=== PATIENT | female | born 1975 | race Caucasian/White ===

== ENCOUNTER 2019-01-06 15:41 | Emergency (ER) | payer SELFPAY ==
[~2019-01-06] VITALS: Ht 170.2 cm; Wt 140.0 kg
[2019-01-06] MEDS ORDERED: IV NORMAL SALINE 1,000ML 1,000 ML IV ONE (16:00)
[2019-01-06 16:09] LABS: BASO # 0.4 x10^3/uL (0.0-0.2); BASO % 3 % (0-3); EOS # 0.1 x10^3/uL (0.0-0.7); EOS % 1 % (0-3); HEMATOCRIT 31.5 % (36.0-47.0); HEMOGLOBIN 10.7 g/dL (12.0-15.5); LYMPH # 1.9 x10^3/uL (1.0-4.8); LYMPH % 16 % (24-48); MEAN CORPUSCULAR HEMOGLOBIN 40 pg (25-35); MEAN CORPUSCULAR HGB CONC 34 g/dL (31-37); MEAN CORPUSCULAR VOLUME 118 fL (79-100); MONO # 0.9 x10^3/uL (0.0-1.1); MONO % 8 % (0-9); NEUT # 9.1 x10^3uL (1.8-7.7); NEUT % 73 % (31-73); PLATELET COUNT 206 x10^3/uL (140-400); RED BLOOD COUNT 2.67 x10^6/uL (3.50-5.40); WHITE BLOOD COUNT 12.5 x10^3/uL (4.0-11.0)
[2019-01-06] MEDS ORDERED: ONDANSETRON PF 4 MG/2 ML VIAL. IV ONE (16:15)
--- NOTE | 2019-01-06 16:24 | PHYS DOC ---
Past History Past Medical History: Alcoholism, Bipolar, Hypertension, Other Past Surgical History: Other Alcohol Use: Heavy Drug Use: Marijuana Adult General Chief Complaint Chief Complaint: ABDOMINAL PAIN HPI HPI 43-year-old female presents with right upper quadrant pain and scleral icterus. The patient noticed for the last few weeks that she has had yellowing of her eyes. The patient admits to being an alcoholic for more than 20 years. She has not had any alcohol to drink in the last 2 weeks. Prior to that, she was drinking anywhere from 2 beers a day up to half a gallon of vodka. She has never been diagnosed with liver disease. He tells me she has neuropathy in her feet, but no diabetes diagnosis. She has not had fever or chills. She has had intermittent abdominal pain that is mostly in the right upper quadrant. She's had decreased appetite, frequent nausea, and some episodes of vomiting. Review of Systems Review of Systems Constitutional: Denies fever or chills [] Eyes: Denies change in visual acuity, redness, or eye pain. Scleral icterus bilaterally[] HENT: Denies nasal congestion or sore throat [] Respiratory: Denies cough or shortness of breath [] Cardiovascular: No additional information not addressed in HPI [] GI: Denies abdominal pain, nausea, vomiting, bloody stools or diarrhea [] : Denies dysuria or hematuria [] Musculoskeletal: Denies back pain or joint pain [] Integument: Denies rash or skin lesions [] Neurologic: Denies headache, focal weakness or sensory changes [] Endocrine: Denies polyuria or polydipsia [] All other systems were reviewed and found to be within normal limits, except as documented in this note. Current Medications Current Medications Current Medications Medications (Trade) Dose Ordered Sig/Anna Start Time Stop Time Status Last Admin Dose Admin Ondansetron HCl (Zofran) 8 mg 1X ONCE 01/06/19 16:15 01/06/19 16:16 UNV Sodium Chloride 1,000 ml @ 1,000 mls/hr 1X ONCE 01/06/19 16:00 01/06/19 16:59 01/06/19 16:07 1,000 MLS/HR Allergies Allergies Allergies Coded Allergies Type Severity Reaction Last Updated Verified Sulfa (Sulfonamide Antibiotics) Allergy Unknown 01/06/19 Yes Physical Exam Physical Exam Constitutional: Well developed, well nourished, no acute distress, non-toxic appearance. [] HENT: Normocephalic, atraumatic, bilateral external ears normal, oropharynx moist, no oral exudates, nose normal. [] Eyes: PERRLA, EOMI, scleral icterus, no discharge. [] Neck: Normal range of motion, no tenderness, supple, no stridor. [] Cardiovascular: Heart rate regular rhythm, no murmur [] Lungs & Thorax: Bilateral breath sounds clear to auscultation [] Abdomen: Bowel sounds normal, soft, no tenderness, no masses, no pulsatile masses. [] Skin: Jaundiced down to her abdomen.[] Back: No tenderness, no CVA tenderness. [] Extremities: No tenderness, no cyanosis, no clubbing, ROM intact, no edema. [] Neurologic: Alert and oriented X 3, normal motor function, normal sensory function, no focal deficits noted. [] Psychologic: Affect normal, judgement normal, mood normal. [] Current Patient Data Lab Results Laboratory Tests Test 01/06/19 15:58 White Blood Count 12.5 x10^3/uL (4.0-11.0) H Red Blood Count 2.67 x10^6/uL (3.50-5.40) L Hemoglobin 10.7 g/dL (12.0-15.5) L Hematocrit 31.5 % (36.0-47.0) L Mean Corpuscular Volume 118 fL (79-100) H Mean Corpuscular Hemoglobin 40 pg (25-35) H Mean Corpuscular Hemoglobin Concent 34 g/dL (31-37) Red Cell Distribution Width 18.0 % (11.5-14.5) H Platelet Count 206 x10^3/uL (140-400) Neutrophils (%) (Auto) 73 % (31-73) Lymphocytes (%) (Auto) 16 % (24-48) L Monocytes (%) (Auto) 8 % (0-9) Eosinophils (%) (Auto) 1 % (0-3) Basophils (%) (Auto) 3 % (0-3) Neutrophils # (Auto) 9.1 x10^3uL (1.8-7.7) H Lymphocytes # (Auto) 1.9 x10^3/uL (1.0-4.8) Monocytes # (Auto) 0.9 x10^3/uL (0.0-1.1) Eosinophils # (Auto) 0.1 x10^3/uL (0.0-0.7) Basophils # (Auto) 0.4 x10^3/uL (0.0-0.2) H EKG EKG [] Radiology/Procedures Radiology/Procedures [] Impressions: Exam performed: Right upper quadrant ultrasound. HISTORY: Right upper quadrant pain, jaundice, patient is alcoholic. DATE OF SERVICE: 01/06/2019. COMPARISON: None available TECHNIQUE: Real-time grayscale imaging of the right upper abdomen is performed and images are obtained. FINDINGS: Hepatomegaly with diffuse hepatic steatosis. Liver measures 21.1 cm in length. Cholelithiasis with gallbladder wall thickening measuring 6.2 mm. Common bile duct measures 3.3 mm. Right kidney measures 13.7 x 4.9 x 5.0 cm. The visualized pancreas and IVC appear normal. There is small ascites. IMPRESSION: 1. Hepatomegaly with diffuse hepatic steatosis. 2. Cholelithiasis with gallbladder wall thickening. Although there is no pericholecystic fluid, Acute cholecystitis suspected. Electronically signed by: Aislinn Austin MD (01/06/2019 5:02 PM) [facility] DICTATED AND SIGNED BY: AISLINN AUSTIN MD DATE: 01/06/19 [id number] CC: GAVIOTA HUNT DO; PCP,NO ~ Course & Med Decision Making Course & Med Decision Making Pertinent Labs and Imaging studies reviewed. (See chart for details) The patient's labs remarkable for a low potassium, and elevated AST, and elevated bilirubin and an elevated direct bilirubin. This makes obstructive process likely. Her ultrasound shows possible acute cholecystitis. Her urinalysis is positive for infection. I have given the patient 1 g of Rocephin IV. I will also give her oral potassium replacement. Given this ultrasound findings, the patient definitely needs to stay in the hospital. I discussed the patient with Dr. Gómez and he would like the patient transferred to [facility]. He will admit her there. He would also like me to inform general surgery about the patient. I have paged surgeon. The patient is in agreement with this plan. I talked with the surgeon, Dr. Nichols and he is aware of the patient. She will transfer by ambulance. [] Dragon Disclaimer Dragon Disclaimer This electronic medical record was generated, in whole or in part, using a voice recognition dictation system. Departure Departure: Impression: Primary Impression: Cholecystitis, acute with cholelithiasis Additional Impressions: Alcoholism Urinary tract infection Disposition: [facility] Admitting Physician: Rachel Gómez Condition: STABLE Referrals: PCP,NO (PCP) Problem Qualifiers Primary Impression: Cholecystitis, acute with cholelithiasis Biliary obstruction: with biliary obstruction Qualified Codes: K80.01 - Calculus of gallbladder with acute cholecystitis with obstruction Additional Impressions: Urinary tract infection Urinary tract infection type: acute cystitis Hematuria presence: with hematuria Qualified Codes: N30.01 - Acute cystitis with hematuria GAVIOTA HUNT DO Jan 06, 2019 16:24
[2019-01-06 16:27] LABS: ALBUMIN 2.4 g/dL (3.4-5.0); ALBUMIN/GLOBULIN RATIO 0.6 (1.0-1.7); CALCIUM 9.2 mg/dL (8.5-10.1); CREATININE 0.5 mg/dL (0.6-1.0); DIRECT BILIRUBIN 6.6 mg/dL (0.0-0.2); GFR 134.7; POTASSIUM 3.1 mmol/L (3.5-5.1); TOTAL BILIRUBIN 8.5 mg/dL (0.2-1.0); TOTAL PROTEIN 6.5 g/dL (6.4-8.2)
[2019-01-06 16:37] LABS: CLARITY,URINE CLOUDY; COLOR,URINE AMBER; GLUCOSE,URINE 100 mg/dL (NEG)
[2019-01-06 16:38] LABS: BILIRUBIN,URINE LARGE (NEG); NITRITE,URINE POS (NEG); UROBILINOGEN,URINE 8 mg/dL (0.2 mg/dL)
[2019-01-06 16:39] LABS: BACTERIA,URINE MANY /HPF (0-FEW); RBC,URINE 0 /HPF (0-2); SQUAMOUS EPITHELIAL CELL,UR FEW /LPF
--- NOTE | 2019-01-06 17:05 | RAD ---
Exam performed: Right upper quadrant ultrasound. HISTORY: Right upper quadrant pain, jaundice, patient is alcoholic. DATE OF SERVICE: 01/06/2019. COMPARISON: None available TECHNIQUE: Real-time grayscale imaging of the right upper abdomen is performed and images are obtained. FINDINGS: Hepatomegaly with diffuse hepatic steatosis. Liver measures 21.1 cm in length. Cholelithiasis with gallbladder wall thickening measuring 6.2 mm. Common bile duct measures 3.3 mm. Right kidney measures 13.7 x 4.9 x 5.0 cm. The visualized pancreas and IVC appear normal. There is small ascites. IMPRESSION: 1. Hepatomegaly with diffuse hepatic steatosis. 2. Cholelithiasis with gallbladder wall thickening. Although there is no pericholecystic fluid, Acute cholecystitis suspected. Electronically signed by: Aislinn Austin MD (01/06/2019 5:02 PM) [facility]
[2019-01-06] MEDS ORDERED: cefTRIAXone SODIUM 1 GM VIAL ONE (17:23)
[2019-01-06] MEDS ORDERED: IV NORMAL SALINE 50ML 50 ML ONE (17:23)
[2019-01-06] MEDS ORDERED: POTASSIUM CHLORIDE 20 MEQ TABLET.ER. PO ONE (17:30)
[2019-01-06 17:43] VITALS: BP 118/73
== END 2019-01-06 18:45 | disposition short-term general hospital (02) ==
LOC: ER 15:41
DX: K80.01 Calculus of gallbladder with acute cholecystitis with obstruction (principal); F10.20 Alcohol dependence, uncomplicated; N39.0 Urinary tract infection, site not specified; I10 Essential (primary) hypertension; Z88.2 Allergy status to sulfonamides; Y90.9 Presence of alcohol in blood, level not specified
CPT/HCPCS: 36415; 76705; 80053; 81001; 82248; 83690; 85025; 96361; 96365; 96375; 99285; J0696; J2405; J7030